=== PATIENT | female | born 1970 | race Caucasian/White ===

== ENCOUNTER 2016-11-06 14:24 | Emergency (ER) | payer MEDICAID ==
[~2016-11-06] VITALS: Ht 152.4 cm; Wt 74.5 kg
[~2016-11-06 14:24] MED LIST: AZIT250T94 PO; CYCL-319 PO; IBUP-1542 PO; LEVO25TA59; ULT50 PO
[2016-11-06 14:43] VITALS: Ht 152.4 cm; Wt 74.5 kg
[2016-11-06] MEDS ORDERED: PRED20TA PO (16:04)
[2016-11-06] MEDS ORDERED: ACET1TAB40 PO (16:04)
[2016-11-06] MEDS ORDERED: ACYC800T PO (16:04)
--- NOTE | 2016-11-06 16:07 | ERD ---
ER Documentation Chief Complaint Date/Time DATE: 11/06/16 TIME: 16:06 Chief Complaint PAINFUL RASH ON BACK OF HEAD, NECK & FACE X1 WEEK HPI This 46-year-old female presents with a painful rash on right back of her head and right neck. It is been for a week. She denies any fevers, vomiting, shortness breath or chest pain. ROS All systems reviewed and are negative except as per history of present illness. Medications Home Meds Active Scripts Prednisone* (Prednisone*) 20 Mg Tab, 40 MG PO DAILY for 4 Days, TAB Prov:SHELL STOUT MD 11/06/16 Acetaminophen with Codeine (Acetaminophen-Cod #3 Tablet) 1 Each Tablet, 1 TAB PO Q6H, #15 TAB Prov:SHELL STOUT MD 11/06/16 Acyclovir* (Acyclovir*) 800 Mg Tablet, 800 MG PO 5 TIMES DAILY for 7 Days, TAB Prov:SHELL STOUT MD 11/06/16 Azithromycin* (Zithromax*) 250 Mg Tablet, 250 MG PO .ZPACK DIRECTED, #6 TAB TAKE 500 MG (2 TABS) THE FIRST DAY THEN 250 MG (1 TAB) DAYS 2-5 Prov:CARLY BARRY 01/25/16 Ibuprofen* (Motrin*) 600 Mg Tab, 600 MG PO Q6, #20 TAB Prov:SHELL STOUT MD 10/22/15 Cyclobenzaprine Hcl* (Cyclobenzaprine Hcl*) 10 Mg Tablet, 10 MG PO TID, #20 TAB Prov:SHELL STOUT MD 10/22/15 Tramadol HCl (Tramadol HCl) 50 Mg Tablet, 50 MG PO Q4 Y for PAIN, #20 TAB Prov:SHELL STOUT MD 10/22/15 Reported Medications Levothyroxine Sodium* (Synthroid*) 25 Mcg Tablet 03/12/11 Allergies Allergies: Coded Allergies: No Known Drug Allergies (Verified Allergy, Mild, 12/12/11) PMhx/Soc History of Surgery: No Anesthesia Reaction: No Hx Neurological Disorder: No Hx Respiratory Disorders: Yes (asthma) Hx Cardiac Disorders: No Hx Psychiatric Problems: No Hx Miscellaneous Medical Probl: No Hx Alcohol Use: No Hx Substance Use: No Hx Tobacco Use: No Physical Exam Vitals Vital Signs Date Time Temp Pulse Resp B/P Pulse Ox O2 Delivery O2 Flow Rate FiO2 11/06/16 14:43 99.4 103 18 170/96 97 Physical Exam Const: [] Alert, [id number]. Head: Atraumatic Eyes: Normal Conjunctiva ENT: Normal External Ears, Nose and Mouth. Neck: Full range of motion..~ No meningismus. There is a dermatomal vesicular rash as well as a tender anterior cervical or lymph node around the sternocleidomastoid. Resp: Clear to auscultation bilaterally Cardio: Regular rate and rhythm, no murmurs Abd: Soft, non tender, non distended. Normal bowel sounds Skin: No petechiae or purpura. There is a slight vesicular erythematous rash in a dermatomal distribution on the right occipital and right lateral neck. Back: No midline or flank tenderness Ext: No cyanosis, or edema Neur: Awake and alert Psych: Normal Mood and Affect Procedures/MDM Patient presents with signs and symptoms of zoster with reactive lymph node in the neck there is no evidence of cellulitis, meningitis, or complications. Patient was treated with acyclovir, short course of prednisone and Tylenol No. 3. The patient was stable with no new complaints during the ER course. Clinically, there is no current evidence to suggest meningitis, sepsis, acute abdomen, pneumonia, acute coronary syndrome, pulmonary embolism, or any other emergent condition appearing to require further evaluation or hospitalization. The patient should certainly return for any new or worsening symptoms per the aftercare instructions. They should otherwise follow-up with her primary care doctor for reevaluation this week. Departure Diagnosis: Primary Impression: Shingles Herpes zoster complications: without complications Qualified Code: B02.9 - Herpes zoster without complication Condition: Stable Patient Instructions: Shingles (Herpes Zoster) SHELL STOUT MD Nov 06, 2016 16:07
== END 2016-11-06 16:29 | disposition home or self-care (01) ==
LOC: FTE 14:24
DX: B02.9 Zoster without complications (principal); J45.909 Unspecified asthma, uncomplicated
CPT/HCPCS: 99284

== ENCOUNTER 2019-01-27 11:39 | Emergency (ER) | payer MEDICAID ==
[~2019-01-27] VITALS: Wt 60.0 kg
[~2019-01-27 11:39] MED LIST changes: +ACET1TAB40 PO; +ACYC800T PO; +AZIT250T PO; -AZIT250T94 PO; -CYCL-319 PO; +CYCL10TA7 PO; +LEVO25TA; -LEVO25TA59; +PRED20TA PO; +TRAM50TA2 PO; -ULT50 PO
[2019-01-27] MEDS ORDERED: IBUP-1542 PO (13:21)
[2019-01-27] MEDS ORDERED: ACET325T33 PO (13:21)
[2019-01-27 13:42] VITALS: BP 139/84; PULSE 89; RESP 18
--- NOTE | 2019-01-27 16:14 | ERD ---
ER Documentation Chief Complaint Chief Complaint FEVER COUGH AND BODY ACHES FOR THE PAST [address] AND EAR PAIN HPI Patient is a 48-year-old female with hypertension who presents with multiple complaints. The patient said that she has had sneezing, coughing, sore throat, fevers, and body aches. She said her symptoms started on . She tried ibuprofen and NyQuil. She did get a flu shot this year. Upon review of old medical records the patient has had multiple visits for various complaints to the emergency department. She does not remember the name of her primary doctor. ROS All systems reviewed and are negative except as per history of present illness. Medications Home Meds Active Scripts Acetaminophen* (Tylenol*) 325 Mg Tablet, 2 TAB PO Q8 PRN for PAIN AND OR ELEVATED TEMP, #20 TAB Prov:GUME KAUFMAN MD 01/27/19 Ibuprofen* (Motrin*) 600 Mg Tab, 600 MG PO Q8 PRN for PAIN AND OR ELEVATED TEMP, #30 TAB Prov:GUME KAUFMAN MD 01/27/19 Prednisone* (Prednisone*) 20 Mg Tab, 40 MG PO DAILY for 4 Days, TAB Prov:SHELL STOUT MD 11/06/16 Acetaminophen with Codeine (Acetaminophen-Cod #3 Tablet) 1 Each Tablet, 1 TAB PO Q6H, #15 TAB Prov:SHELL STOUT MD 11/06/16 Acyclovir* (Acyclovir*) 800 Mg Tablet, 800 MG PO 5 TIMES DAILY for 7 Days, TAB Prov:SHELL STOUT MD 11/06/16 Azithromycin* (Zithromax*) 250 Mg Tablet, 250 MG PO .SilvinoPACK DIRECTED, #6 TAB TAKE 500 MG (2 TABS) THE FIRST DAY THEN 250 MG (1 TAB) DAYS 2-5 Prov:CARLY BARRY 01/25/16 Ibuprofen* (Motrin*) 600 Mg Tab, 600 MG PO Q6, #20 TAB Prov:SHELL STOUT MD 10/22/15 Cyclobenzaprine Hcl* (Cyclobenzaprine Hcl*) 10 Mg Tablet, 10 MG PO TID, #20 TAB Prov:SHELL STOUT MD 10/22/15 Tramadol HCl (Tramadol HCl) 50 Mg Tablet, 50 MG PO Q4 PRN for PAIN, #20 TAB Prov:SHELL STOUT MD 10/22/15 Reported Medications Levothyroxine Sodium* (Synthroid*) 25 Mcg Tablet 03/12/11 Allergies Allergies: Coded Allergies: No Known Drug Allergies (Verified Allergy, Mild, 01/27/19) PMhx/Soc History of Surgery: No Anesthesia Reaction: No Hx Neurological Disorder: No Hx Respiratory Disorders: Yes (asthma) Hx Cardiac Disorders: No Hx Psychiatric Problems: No Hx Miscellaneous Medical Probl: No Hx Alcohol Use: Yes (ONCE A MONTH) Hx Substance Use: No Hx Tobacco Use: No FmHx Family History: No diabetes Physical Exam Vitals Vital Signs Date Temp Pulse Resp B/P (MAP) Pulse Ox O2 O2 Flow FiO2 Time Delivery Rate 01/27/19 99.3 89 18 139/84 98 Room Air 13:42 (102) 01/27/19 101.4 109 18 153/97 98 11:43 (115) Physical Exam Const: No acute distress Head: Atraumatic Eyes: Normal Conjunctiva ENT: Normal External Ears, Nose and Mouth. Neck: Full range of motion. No meningismus. Resp: Clear to auscultation bilaterally Cardio: Regular rate and rhythm, no murmurs Abd: Soft, non tender, non distended. Normal bowel sounds Skin: No petechiae or rashes Back: No midline or flank tenderness Ext: No cyanosis, or edema Neur: Awake and alert Psych: Normal Mood and Affect Procedures/MDM Patient is a 48-year-old female who presents with body aches, cough, and sore throat. The patient has no signs of serious bacterial infection at this time. I believe this is likely a viral illness. The patient will be discharged and can use Tylenol or Motrin for symptom medic relief. The patient can return for any worsening symptoms. Departure Diagnosis: Primary Impression: Upper respiratory infection URI type: unspecified URI Qualified Codes: J06.9 - Acute upper respiratory infection, unspecified Condition: Fair Patient Instructions: Uri, Viral, No Abx (Adult) Referrals: Your doctor Additional Instructions: Llame al doctor nombra abavirgilio (Referral Sources) MAANA y ondina rachael NOAH PARA DENTRO DE RACHAEL SEMANA. Dgale a la secretaria que nosotros le instruimos hacer esta noah.Avise o llame si ha condicin se empeora antes de la noah. GUME KAUFMAN MD Jan 27, 2019 16:14
== END 2019-01-27 13:43 | disposition home or self-care (01) ==
LOC: FTE 11:39
DX: J06.9 Acute upper respiratory infection, unspecified (principal); J45.909 Unspecified asthma, uncomplicated; I10 Essential (primary) hypertension
CPT/HCPCS: 99282